=== PATIENT | female | born 1970 | race Caucasian/White ===

== ENCOUNTER 2017-01-12 08:02 | Observation (INO) ==
[2017-01-12] MEDS ORDERED: ONDANSETRON 4 MG/2 ML VIAL IV ONE ×3 (08:34→12:04)
[2017-01-12] MEDS ORDERED: LACTATED RINGERS 1,000 ML IV ONE (08:34)
[2017-01-12] MEDS ORDERED: cefTRIAXone 1 GM in DEXTROSE 5% IN WATER 50 ML IV SCH ×2 (08:45→13:17)
--- NOTE | 2017-01-12 08:46 | Emergency Department Note ---
Female Urogenital HPI - General Chief complaint: Flank Pain Stated complaint: Flank pain Time Seen by Provider: 01/12/17 08:34 Source: patient Mode of arrival: ambulatory - History of Present Illness HPI Narrative: Cintia is a 46-year-old female who presents to the emergency room with frequent urination and back pain. She reports that her symptoms began a week before last with frequent urination and for which she took [id number] phenazopyridine 97.5 mg. Her symptoms seem to improve and resolve completely but returned 5 days ago with back pain, pain with urination, sensation is still needing to go, and last p.m. onset of nausea and vomiting. This morning has vomited about 3 times. She has had some cold sweats and her temperature was measured to 101.7 last p.m. She has a history of pyelonephritis about 5-10 years ago once, a UTI/bladder infection about 2 years ago. She denies a history of kidney stones. - Related Data Home Medications Medication Instructions Recorded Confirmed LORazepam [Ativan] 0.5 mg PO PRN PRN 01/27/15 08/03/16 Methylphenidate HCl [Ritalin] 20 mg PO BID 01/27/15 08/03/16 Omeprazole [PriLOSEC] 20 mg PO BIDAC 01/27/15 08/03/16 oxyCODONE HCL/ACETAMINOPHEN 1 cap PO TID 01/27/15 08/03/16 [Oxycodon-Acetaminophen 7.5-325] Citalopram [Celexa] 20 mg PO DAILY 08/08/15 08/03/16 Fingolimod HCl [Gilenya] 0.5 mg PO DAILY 04/23/16 08/03/16 Methocarbamol [Robaxin] 500 mg PO QIDP PRN 08/03/16 08/03/16 Previous Rx's Medication Instructions Recorded HYDROcodone/APAP 5/325MG [[place] 1 tab PO Q4HP PRN #20 tablet 08/03/16 5/325Mg] Ondansetron HCl [Zofran ODT] 4 mg SL Q4-6HP PRN #15 tablet 08/03/16 Allergies Allergy/AdvReac Type Severity Reaction Status Date / Time metronidazole Allergy Verified 12/14/15 15:02 Sulfa (Sulfonamide Allergy Verified 12/14/15 15:02 Antibiotics) Review of Systems Review of Systems: No headaches or syncope or near fainting. She does get frequent or chronic paresthesias due to her MS. She denies diarrhea constipation nausea or vomiting before these couple of days, and hematochezia she denies. Normally she does not have any urinary tract symptoms of frequency or urgency or burning. She denies palpitations or irregular heartbeat or chest pain. She denies edema. Her weight has been stable. She denies cough, phlegm, wheezing, shortness of breath. Past Medical History - Past Medical History Medical history: Reports: other (MS. Right thyroid nodule. Pancreatitis once.) . Denies: coronary artery disease, diabetes, hypertension Surgical history ED: Reports: , cholecystectomy, colectomy, orthopedic , other (shoulder) - Social History smoking status: Never smoker Alcohol use: Reports: None, Occasionally (1-2 times a week.) Drug use: Reports: none Physical Exam - General General appearance: alert, other (some sitting upright with restless but very alert and interactive.) - Head Head exam: atraumatic, normocephalic - Eye Eye exam: Present: normal appearance, PERRL, EOMI - ENT ENT exam: normal oropharynx, mucous membranes moist, TM's normal bilaterally - Neck Neck exam: Present: other (right 1.5-2 cm thyroid nodule (known)). Absent: tenderness, lymphadenopathy - Respiratory Respiratory exam: Present: normal lung sounds bilaterally. Absent: respiratory distress, wheezes, stridor, accessory muscle use - Cardiovascular Cardiovascular exam: Present: regular rate, tachycardia, systolic murmur (1/6 mild early systolic at left upper sternal border ONLY with inspiration.) - Abdominal Exam Abdominal exam: Present: soft. Absent: distention, tenderness, guarding, rebound, rigidity, mass - Extremities Exam Extremities exam: Present: normal capillary refill, other (no pretibial edema). Absent: tenderness - Back Exam Back exam: Present: CVA tenderness (R) (more on right than left), CVA tenderness (L) - Neurological Exam Neurological exam: Present: alert, oriented X3 - Psychiatric Psychiatric exam: Present: normal affect, normal mood. Absent: depressed, agitated - Skin Skin exam: Present: warm, dry Course Vital Signs Temperature 97.8 F 01/12/17 08:02 Pulse Rate 108 H 01/12/17 08:02 Respiratory Rate 18 01/12/17 08:02 Blood Pressure 189/66 01/12/17 08:02 Pulse Oximetry (%) 99 01/12/17 08:02 Temperature 97.8 F 01/12/17 08:02 Pulse Rate 108 H 01/12/17 08:02 Respiratory Rate 18 01/12/17 08:02 Blood Pressure 189/66 01/12/17 08:02 Pulse Oximetry (%) 99 01/12/17 08:02 Urogenital-Female - MDM Narrative Medical decision making narrative: Patient was seen and examined and interviewed with H&P done, labs ordered, imaging ordered because of her history of previous [place] and to make sure there is no stone that would complicate her case. High likelihood of pyelonephritis with tachycardia, fever and UTI type symptoms. Rocephin was given as 1 g, pain medicine given and nausea medicine given as well as IV fluid bolus. Care will be transferred to Dr. Hernandez at 9:00 as the oncoming attending physician. Disposition Pt seen by OFFICE NURSE PRACTITIONER/PA only: No Referrals: Jonah Mcfadden MD [Primary Care Provider] -
[2017-01-12] MEDS: HYDROmorphone 2 MG/ML SYRINGE IV PRN ×4 (08:55→12:21)
[2017-01-12 09:25] LABS: Appearance,Urine HAZY; Bacteria,Urine MOD /hpf (0); Bilirubin,Urine NEG (NEG); Color,Urine AMBER; Glucose,Urine (UA) NEGATIVE (NEG); Leukocyte Esterase,Urine 25 /uL (NEG); Mucus,Urine FEW /hpf (0); Nitrate,Urine POS (NEG); Protein,Urine 100 mg/dL (NEG); Specific Gravity,Urine 1.013 (1.000-1.035); Urine Blood NEG mg/dL (<0.03); Urine RBC 4 /hpf (0-1); Urine Squamous Epithelial Cell 8 /hpf (0-4); Urine WBC > 182 /hpf (0-4)
--- NOTE | 2017-01-12 09:26 | Cat Scan Report ---
CLINICAL INFORMATION: Hematuria. Dysuria COMPARISON: CT scan dated 11/09/2013 TECHNIQUE: Axial images were obtained through the abdomen and pelvis. Sagittally and coronally reformatted images. FINDINGS: Kidneys are negative to limits of noncontrast enhanced examination. No renal calculi. No hydronephrosis. No hydroureter. No bladder calculus. No detectable solid or cystic renal mass. Urinary bladder is not distended. Bladder mass is not excluded based upon this examination. There is an anastomotic suture line in the sigmoid colon. Colon is otherwise negative. No diverticulitis. No detectable colonic mass. Lung bases are negative. There are changes consistent with fatty infiltration of liver. There is a known hemangioma in the left lobe. Liver contour is smooth. No evidence for cirrhosis. Multiple surgical clips in the gallbladder fossa. No dilated bile ducts. Negative pancreas. No pancreatic mass. No peripancreatic abnormality. Negative adrenal glands. Negative spleen. No splenomegaly. No abdominal aortic aneurysm. No retroperitoneal or mesenteric abnormality. Lumbar spine, sacrum, pelvis are negative. IMPRESSION: 1. Findings consistent with hepatic steatosis. Known hemangioma in the left lobe of the liver 2. Kidneys are negative to limits of noncontrast enhanced examination. No urolithiasis. No hydronephrosis or hydroureter Interpreted and Authenticated by: Anthony Montgomery 01/12/17
[2017-01-12 09:48] LABS: Basophils # (Auto) 0 K/mcL (0.0-0.3); Basophils % (Auto) 0.3 % (0.0-2.0); Eosinophils # (Auto) 0 K/mcL (0.0-0.7); Eosinophils % (Auto) 0.2 % (0.0-7.0); Granulocytes % (Auto) 69.3 % (38.0-78.0); Lymphocytes # (Auto) 1.9 K/mcL (1.5-4.8); Mean Cell Volume 92.3 fL (80.0-100.0); Mean Corpuscular HGB Conc 32.5 g/dL (31.0-36.0); Monocytes # (Auto) 0.7 K/mcL (0.1-0.9); Monocytes % (Auto) 8.2 % (1.0-12.0); Platelet Count 291 K/mcL (140-440); RBC 4.58 M/mcL (4.00-5.20); Red Cell Distribution Width 17.1 % (11.5-14.5)
[2017-01-12 10:12] LABS: ALT/SGPT 68 U/l (0-40); Albumin 4.4 gm/dL (3.2-5.2); Albumin/Globulin Ratio 1.3 (1.0-2.3); Alkaline Phosphatase 124 U/L (39-117); Blood Urea Nitrogen 4 mg/dl (6-20); Lipase 31 U/L (7-60)
--- NOTE | 2017-01-12 11:01 | Emergency Department Note ---
Abdominal Pain HPI - General Chief Complaint: Flank Pain Stated Complaint: Flank pain Time Seen by Provider: 01/12/17 08:34 Source: patient Mode of arrival: ambulatory Limitations: no limitations - History of Present Illness HPI Narrative: Patient is checked out to me at shift change from Dr. Mojica. I reviewed his notes as well as her studies. Additional history is noted that she is not able to hold anything down in terms of oral intake. - Related Data Home Medications Medication Instructions Recorded Confirmed LORazepam [Ativan] 0.5 mg PO PRN PRN 01/27/15 08/03/16 Methylphenidate HCl [Ritalin] 20 mg PO BID 01/27/15 08/03/16 Omeprazole [PriLOSEC] 20 mg PO BIDAC 01/27/15 08/03/16 oxyCODONE HCL/ACETAMINOPHEN 1 cap PO TID 01/27/15 08/03/16 [Oxycodon-Acetaminophen 7.5-325] Citalopram [Celexa] 20 mg PO DAILY 08/08/15 08/03/16 Fingolimod HCl [Gilenya] 0.5 mg PO DAILY 04/23/16 08/03/16 Methocarbamol [Robaxin] 500 mg PO QIDP PRN 08/03/16 08/03/16 Previous Rx's Medication Instructions Recorded HYDROcodone/APAP 5/325MG [[place] 1 tab PO Q4HP PRN #20 tablet 08/03/16 5/325Mg] Ondansetron HCl [Zofran ODT] 4 mg SL Q4-6HP PRN #15 tablet 08/03/16 Allergies Allergy/AdvReac Type Severity Reaction Status Date / Time metronidazole Allergy Verified 12/14/15 15:02 Sulfa (Sulfonamide Allergy Verified 12/14/15 15:02 Antibiotics) Abdominal Pain PMH - Past Medical History Medical history: Reports: other (MS. Right thyroid nodule. Pancreatitis once.) . Denies: coronary artery disease, diabetes, hypertension Psychiatric history: Reports: no psych history FAST FOOD SUPERVISOR history: Reports: no FAST FOOD SUPERVISOR history Family history: Reports: no significant family history - Social History Alcohol use: Reports: None, Occasionally (1-2 times a week.) Drug use: Reports: none Physical Exam - General General appearance: alert, other (some sitting upright with restless but very alert and interactive.) Course Vital Signs Temperature 97.8 F 01/12/17 08:02 Pulse Rate 108 H 01/12/17 08:02 Respiratory Rate 18 01/12/17 08:02 Blood Pressure 189/66 01/12/17 08:02 Pulse Oximetry (%) 99 01/12/17 08:02 Temperature 97.8 F 01/12/17 08:02 Pulse Rate 83 01/12/17 10:30 Respiratory Rate 18 01/12/17 08:02 Blood Pressure 135/51 01/12/17 10:31 Pulse Oximetry (%) 96 01/12/17 10:30 Abdominal Pain - Lab Data Lab results reviewed: Yes I reviewed the patient's lab results. Result diagrams: 01/12/17 08:49 01/12/17 08:49 Lab Results 01/12/17 01/12/17 01/12/17 Range/Units 08:17 08:48 08:49 WBC 8.7 (4.5-11.0) K/mcL RBC 4.58 (4.00-5.20) M/mcL Hgb 13.7 (12.0-15.0) g/dL Hct 42.3 (36.0-48.0) % MCV 92.3 (80.0-100.0) fL MCH 30.0 (26.0-34.0) pg MCHC 32.5 (31.0-36.0) g/dL RDW 17.1 H (11.5-14.5) % Plt Count 291 (140-440) K/mcL MPV 8.3 (7.4-10.4) fL Gran % 69.3 (38.0-78.0) % Lymph % (Auto) 22.0 (15.5-49.0) % [place] % (Auto) 8.2 (1.0-12.0) % Eos % (Auto) 0.2 (0.0-7.0) % Baso % (Auto) 0.3 (0.0-2.0) % Gran # 6.0 (1.8-8.0) K/mcL Lymph # (Auto) 1.9 (1.5-4.8) K/mcL [place] # (Auto) 0.7 (0.1-0.9) K/mcL Eos # (Auto) 0 (0.0-0.7) K/mcL Baso # (Auto) 0 (0.0-0.3) K/mcL VBG Lactic Acid 2.6 H (0.5-2.2) mmol/L Sodium (133-145) mmol/L Potassium (3.3-5.1) mmol/L Chloride (96-108) mmol/L Carbon Dioxide (22-30) mmol/L Anion Gap (8-16) BUN (6-20) mg/dl Creatinine (0.6-1.1) mg/dl GFR Calculation Glucose (70-105) mg/dL Calcium (8.6-10.4) mg/dl Total Bilirubin (0.0-1.0) mg/dL AST (0-37) U/l ALT (0-40) U/l Alkaline Phosphatase (39-117) U/L Total Protein (5.9-8.4) gm/dL Albumin (3.2-5.2) gm/dL Globulin (2.2-3.7) gm/dL Albumin/Globulin Ratio (1.0-2.3) Lipase (7-60) U/L Urine Color Ruba Urine Appearance Hazy Urine pH 7.0 (5.0-9.0) Ur Specific [place] 1.013 (1.000-1.035) Urine Protein 100 A (NEG) mg/dL Urine Glucose (UA) Negative (NEG) mg/dL Urine Ketones Neg (NEG) mg/dL Urine Occult Blood Neg (<0.03) mg/dL Urine Nitrate Pos A (NEG) Urine Bilirubin Neg (NEG) mg/dL Urine Urobilinogen 4.0 A (NEG) mg/dL Ur Leukocyte Esterase 25 A (NEG) /uL Urine RBC 4 H (0-1) /hpf Urine WBC > 182 H (0-4) /hpf Ur Squamous Epith Cells 8 H (0-4) /hpf Urine Bacteria Mod A (0) /hpf Urine Mucus Few (0) /hpf Ur Culture Indicated? No 01/12/17 Range/Units 08:49 WBC (4.5-11.0) K/mcL RBC (4.00-5.20) M/mcL Hgb (12.0-15.0) g/dL Hct (36.0-48.0) % MCV (80.0-100.0) fL MCH (26.0-34.0) pg MCHC (31.0-36.0) g/dL RDW (11.5-14.5) % Plt Count (140-440) K/mcL MPV (7.4-10.4) fL Gran % (38.0-78.0) % Lymph % (Auto) (15.5-49.0) % [place] % (Auto) (1.0-12.0) % Eos % (Auto) (0.0-7.0) % Baso % (Auto) (0.0-2.0) % Gran # (1.8-8.0) K/mcL Lymph # (Auto) (1.5-4.8) K/mcL [place] # (Auto) (0.1-0.9) K/mcL Eos # (Auto) (0.0-0.7) K/mcL Baso # (Auto) (0.0-0.3) K/mcL VBG Lactic Acid (0.5-2.2) mmol/L Sodium 139 (133-145) mmol/L Potassium 3.0 L (3.3-5.1) mmol/L Chloride 94 L (96-108) mmol/L Carbon Dioxide 28 (22-30) mmol/L Anion Gap 17.0 H (8-16) BUN 4 L (6-20) mg/dl Creatinine 0.8 (0.6-1.1) mg/dl GFR Calculation 87 Glucose 154 H (70-105) mg/dL Calcium 9.2 (8.6-10.4) mg/dl Total Bilirubin 1.1 H (0.0-1.0) mg/dL AST 145 H (0-37) U/l ALT 68 H (0-40) U/l Alkaline Phosphatase 124 H (39-117) U/L Total Protein 7.9 (5.9-8.4) gm/dL Albumin 4.4 (3.2-5.2) gm/dL Globulin 3.5 (2.2-3.7) gm/dL Albumin/Globulin Ratio 1.3 (1.0-2.3) Lipase 31 (7-60) U/L Urine Color Urine Appearance Urine pH (5.0-9.0) Ur Specific [place] (1.000-1.035) Urine Protein (NEG) mg/dL Urine Glucose (UA) (NEG) mg/dL Urine Ketones (NEG) mg/dL Urine Occult Blood (<0.03) mg/dL Urine Nitrate (NEG) Urine Bilirubin (NEG) mg/dL Urine Urobilinogen (NEG) mg/dL Ur Leukocyte Esterase (NEG) /uL Urine RBC (0-1) /hpf Urine WBC (0-4) /hpf Ur Squamous Epith Cells (0-4) /hpf Urine Bacteria (0) /hpf Urine Mucus (0) /hpf Ur Culture Indicated? - Radiology Data Radiology results reviewed: Yes I reviewed the patient's radiology results. CT scan of the abdomen and pelvis with contrast shows no source for her belly pain-no pyelonephritis Disposition Pt seen by CAN[employer]ODU[employer] SALES REPRESENTATIVE/PA only: No Clinical Impression: Complicated UTI (urinary tract infection), Nonalcoholic steatohepatitis ([place]) , Multiple sclerosis, Hypokalemia Intractable nausea and vomiting Qualifiers: Vomiting type: unspecified Qualified Code(s): R11.2 - Nausea with vomiting, unspecified Summary: She received IV fluids Rocephin dilaudid and nausea medicine while getting workup Labs show hypokalemia, severe UTI, elevated liver enzymes in the context of immunosuppressive MS medicine. CT scan is unrevealing Discussed situation with Dr. Loaiza our hospitalist who agreed to accept the patient for further care Disposition: Home, Self-Care Condition: Fair Referrals: Jonah Mcfadden MD [Primary Care Provider] -
[2017-01-12] MEDS ORDERED: POTASSIUM CHLORIDE 40 MEQ in DEXTROSE 5% IN WATER 500 ML IV ONE ×2 (11:02→14:47)
[2017-01-12] MEDS ORDERED: ACETAMINOPHEN 325 MG TABLET PO PRN (13:17)
[2017-01-12] MEDS ORDERED: MAGNESIUM HYDROXIDE 30 ML ORAL.SUSP PO PRN (13:17)
[2017-01-12] MEDS ORDERED: IPRATROPIUM/ALBUTEROL 3 ML AMPUL.NEB NEB PRN (13:17)
[2017-01-12] MEDS ORDERED: NALOXONE HCL 0.4 MG/ML VIAL IV PRN (13:17)
[2017-01-12] MEDS ORDERED: oxyCODONE HCL 5 MG TABLET PO PRN (13:17)
--- NOTE | 2017-01-12 13:46 | Internal Med History&Physical ---
Medical - H&P: HPI Patient information: Note initiated : 01/12/17 at 1:43 pm Service Date, if different from initiated Date: [] Patient: Cintia Lao a 46 y/o F admitted on 01/12/17 for Flank pain. Chief Complaint: [] History of present illness: Ms. Lao is a 46 year old F with history of multiple sclerosis and UTIs in the past, presents to the ER with hypogastric pain when onfor the last couple weeks, as well as increased frequency of urination and dysuria for 2 weeks. Nausea, vomiting and flank pain into 2 days. the patient notes that she has been having lower abdominal discomfort sharp pain radiating backwards to the flanks going on for the last 2 weeks, she took [id number] phenazopyridine to see if this helped. It helped for a short period of time and his symptoms returned. The patient symptoms are worse with urination. Otherwise has no other aggravating or relieving factors. The patient had a low-grade temperature yesterday was not feeling very well. The patient admits to having bilateral flank pains similar to what she had in the past when she had pyelonephritis. For the last 2 days. The patient has been having persistent nausea and vomiting and has not been able to tolerate by mouth diet very well. Given the above symptoms, she presented to the ER. In the ER, the patient was afebrile, however, was unable to tolerate by mouth. Her blood work was significant for elevated lactic acid at 2.6, potassium of 3, creatinine of 0.8, mildly elevated liver functions, baseline unknown. The patient's UA suggestive of urinary tract infection. CT scan of the abdomen and pelvis does not reveal any pyelonephritis. IV rocephin given in the ER The patient was admitted to the hospital, given that she has not been able to tolerate by mouthand has a urinary tract infection. All systems: reviewed and no additional remarkable complaints except as stated ( as per HPI) Medical - H&P: PM Medical history: Medical History (Last Updated 01/12/17 @ 11:03 by Cuco Hernandez MD) Shoulder pain (Acute) Fibrositis (Acute) Abdominal pain (Acute) Urinary tract infection (Acute) Pyelonephritis (Acute) Chronic right shoulder pain (Acute) Palpitations (Acute) Sinus tachycardia (Acute) Liver masses (Acute) Pancreatitis (Acute) Multiple sclerosis Surgical history: hysterectomy, cholecystectomy, , partial colectomy, status postoperative diverticulitis. Family history: reviewed and not pertinent Pertinent family history: mother thyroid cancer father prostate cancer. Social history: patient denies smoking, drugs, alcohol to 2 times a week, no recreational drugs reported. Medical - H&P: Meds Home Medications Medication Instructions Recorded Confirmed Type LORazepam [Ativan] 0.5 mg PO PRN PRN 01/27/15 01/12/17 History Methylphenidate HCl [Ritalin] 20 mg PO BID 01/27/15 01/12/17 History Omeprazole [PriLOSEC] 20 mg PO DAILY 01/27/15 01/12/17 History oxyCODONE HCL/ACETAMINOPHEN 7.5 mg PO QIDP 01/27/15 01/12/17 History [Oxycodon-Acetaminophen 7.5-325] Citalopram [Celexa] 20 mg PO DAILY 08/08/15 01/12/17 History Fingolimod HCl [Gilenya] 0.5 mg PO DAILY 04/23/16 01/12/17 History Cyclobenzaprine [Flexeril] 10 mg PO DAILY 01/12/17 01/12/17 History Allergies Allergy/AdvReac Type Severity Reaction Status Date / Time Sulfa (Sulfonamide Allergy Severe Difficulty Verified 01/12/17 13:20 Antibiotics) Breathing metronidazole Allergy Intermediate Hives Verified 01/12/17 13:20 Medical - H&P: Exam - Constitutional Vitals: Temp Pulse Resp BP Pulse Ox 97.8 F 82 20 165/52 95 01/12/17 13:03 01/12/17 13:03 01/12/17 13:03 01/12/17 13:03 01/12/17 13:03 Exam: GENERAL: The patient is a well-developed, well-nourished in no apparent distress. Is alert and oriented x3. VITAL SIGNS: Reviewed and as noted elsewhere. HEENT: Head is normocephalic and atraumatic. Extraocular muscles are intact. Pupils are equal, round, and reactive to light. Nares appeared normal. Mouth appears any without lesions. Mucous membranes are dry. NECK: Normal to inspection, Supple, No lymphadenopathy or thyromegaly. LUNGS: Air entry equal on both sides, no wheezing, crackles or rhonchi noted. No accessory muscles of respiration HEART: Regular rate and rhythm normal, S1 and S2 heard, no Gallop, S3 or Rub Noted, No Gross murmur heard. ABDOMEN: Soft, mild hypogastric tenderness present, and nondistended. Positive bowel sounds. No hepatosplenomegaly was noted. carmina flank tenderness present. EXTREMITIES: No cyanosis, clubbing, rash, lesions or edema. NEUROLOGIC: Cranial nerves II through XII are grossly intact. Motor and Sensory System Grossly Intact PSYCHIATRIC: Normal affect, Normal Mood. Appropriate Behavior. SKIN: No ulceration or wounds noted, No jaundice, No rash noted. Medical - H&P: Reslt - Labs CBC & Chem 7: 01/12/17 08:49 01/12/17 08:49 Medical - H&P: A/P - Narrative A/P Narrative: A/P Nausea and Vomiting Urinary tract infectino Hypokalemia Multiple sclerosis Chr pain Depression/ Anxiety Elevated Lactic acid Plan IV fluids Recheck labs Replace K Await culture results IV rocephin for now. Blood cultures ordered. Resume home meds once confirmed IV Famotid and zofran for nausae and vomiting. DVT hjep sq Regular diet Full code.
[2017-01-12] MEDS ORDERED: PROMETHAZINE 50 MG/ML AMPUL IM PRN (14:03)
[2017-01-12] MEDS: FAMOTIDINE/PF 20 MG/2 ML VIAL IV SCH ×2 (14:08→20:27)
[2017-01-12] MEDS: 0.9 % SODIUM CHLORIDE 10 ML SYRINGE IV SCH ×2 (14:14→20:33)
[2017-01-12] MEDS ORDERED: ACETAMINOPHEN PO SCH (14:15)
[2017-01-12] MEDS ORDERED: OXYCODONE HCL PO SCH (14:15)
[2017-01-12] MEDS ORDERED: [UNRECOGNIZED DRUG - OTHER] PO SCH (14:15)
[2017-01-12 14:40] LABS: ALT/SGPT 53 U/l (0-40); Albumin 3.7 gm/dL (3.2-5.2); Albumin/Globulin Ratio 1.4 (1.0-2.3); Alkaline Phosphatase 100 U/L (39-117); Bilirubin,Direct < 0.2 mg/dL (0.0-0.3); Blood Urea Nitrogen 4 mg/dl (6-20); Gamma Glutamyl Transpeptidase 376 U/L (5-36); Magnesium 1.6 mg/dL (1.6-2.5); Uric Acid 6.4 mg/dL (2.5-8.0)
[2017-01-12] MEDS: oxyCODONE HCL 5 MG TABLET PO PRN ×2 (17:31→21:43)
[2017-01-12] MEDS: 0.9 % SODIUM CHLORIDE 1,000 ML IV SCH (18:44)
[2017-01-12] MEDS: ONDANSETRON 4 MG/2 ML VIAL IV PRN (19:02)
[2017-01-12] MEDS: LORazepam 0.5 MG TABLET PO PRN (20:27)
[2017-01-12] MEDS: HEPARIN 5,000 UNIT/ML VIAL SQ SCH (20:30)
[2017-01-12] MEDS: Methylphenidate Hcl [Ritalin] 20 mg Tab PO SCH (20:33)
[2017-01-13] MEDS: oxyCODONE HCL 5 MG TABLET PO PRN ×6 (02:06→22:00)
[2017-01-13] MEDS: 0.9 % SODIUM CHLORIDE 1,000 ML IV SCH ×3 (02:08→10:53)
[2017-01-13] MEDS: 0.9 % SODIUM CHLORIDE 10 ML SYRINGE IV SCH ×3 (05:53→21:30)
[2017-01-13] MEDS: ONDANSETRON 4 MG/2 ML VIAL IV PRN (07:22)
[2017-01-13] MEDS: Methylphenidate Hcl [Ritalin] 20 mg Tab PO SCH ×2 (07:25→21:30)
[2017-01-13] MEDS: FAMOTIDINE/PF 20 MG/2 ML VIAL IV SCH ×2 (07:45→21:28)
[2017-01-13] MEDS: CITALOPRAM 20 MG TABLET PO SCH (07:46)
[2017-01-13] MEDS: CYCLOBENZAPRINE 10 MG TABLET PO SCH (07:46)
[2017-01-13] MEDS: OMEPRAZOLE 20 MG CAPSULE PO SCH (07:46)
[2017-01-13] MEDS: HEPARIN 5,000 UNIT/ML VIAL SQ SCH ×2 (07:46→21:30)
[2017-01-13] MEDS: cefTRIAXone 1 GM in DEXTROSE 5% IN WATER 50 ML IV SCH (08:53)
[2017-01-13 10:37] LABS: Basophils # (Auto) 0 K/mcL (0.0-0.3); Basophils % (Auto) 0.1 % (0.0-2.0); Eosinophils # (Auto) 0 K/mcL (0.0-0.7); Eosinophils % (Auto) 0.9 % (0.0-7.0); Granulocytes % (Auto) 49.2 % (38.0-78.0); Lymphocytes % (Auto) 39.7 % (15.5-49.0); Mean Cell Volume 92.8 fL (80.0-100.0); Mean Corpuscular HGB Conc 32.6 g/dL (31.0-36.0); Mean Corpuscular Hemoglobin 30.3 pg (26.0-34.0); Monocytes # (Auto) 0.5 K/mcL (0.1-0.9); Monocytes % (Auto) 10.1 % (1.0-12.0); Platelet Count 196 K/mcL (140-440); RBC 3.54 M/mcL (4.00-5.20); Red Cell Distribution Width 16.9 % (11.5-14.5)
[2017-01-13 10:56] LABS: ALT/SGPT 39 U/l (0-40); Albumin 3.3 gm/dL (3.2-5.2); Albumin/Globulin Ratio 1.3 (1.0-2.3); Alkaline Phosphatase 83 U/L (39-117); Bilirubin,Direct < 0.2 mg/dL (0.0-0.3); Blood Urea Nitrogen 2 mg/dl (6-20); Gamma Glutamyl Transpeptidase 298 U/L (5-36); Magnesium 1.5 mg/dL (1.6-2.5); Uric Acid 5.3 mg/dL (2.5-8.0)
[2017-01-13] MEDS ORDERED: MAGNESIUM SULFATE 2 GM/50 ML BAG IV ONE (11:05)
[2017-01-13] MEDS: FINGOLIMOD HCL 0.5 MG PO SCH (12:12)
[2017-01-13] MEDS: METOCLOPRAMIDE 10 MG/2 ML VIAL IV SCH ×2 (12:52→17:53)
--- NOTE | 2017-01-13 15:02 | Internal Med Progress Note ---
Medical - PN: Subj Patient information: Note initiated : 01/13/17 at 3:00 pm Service Date, if different from initiated Date: [] Patient: Cintia Lao a 46 y/o F admitted on 01/12/17 for Flank Pain/UTI, Nausea and Vomiting. Chief Complaint: [] Interval history: Ms. Lao is a 46 year old F with history of multiple sclerosis and UTIs in the past, presents to the ER with hypogastric pain when onfor the last couple weeks, as well as increased frequency of urination and dysuria for 2 weeks. Nausea, vomiting and flank pain into 2 days. the patient notes that she has been having lower abdominal discomfort sharp pain radiating backwards to the flanks going on for the last 2 weeks, she took [id number] phenazopyridine to see if this helped. It helped for a short period of time and his symptoms returned. The patient symptoms are worse with urination. Otherwise has no other aggravating or relieving factors. The patient had a low-grade temperature yesterday was not feeling very well. The patient admits to having bilateral flank pains similar to what she had in the past when she had pyelonephritis. For the last 2 days. The patient has been having persistent nausea and vomiting and has not been able to tolerate by mouth diet very well. Given the above symptoms, she presented to the ER. In the ER, the patient was afebrile, however, was unable to tolerate by mouth. Her blood work was significant for elevated lactic acid at 2.6, potassium of 3, creatinine of 0.8, mildly elevated liver functions, baseline unknown. The patient's UA suggestive of urinary tract infection. CT scan of the abdomen and pelvis does not reveal any pyelonephritis. IV rocephin given in the ER The patient was admitted to the hospital, given that she has not been able to tolerate by mouthand has a urinary tract infection. 01/13: patient seen, examined, yesterday, had no nausea, vomiting. However, after eating breakfast. She vomited 1. She still has some pain in the lower abdomen as well as the left flank and does not feel back to normal. the patient denies any other new complaints. Cultures pending. Pertinent ROS: Denies headache, dizziness Denies chest pain, palpitations Denies cough or shortness of breath Present hypogastric abdominal pain, nausea and vomiting. - Constitutional Vitals: Vital Signs Temp Pulse Resp BP Pulse Ox 98.2 F 85 16 142/56 97 01/13/17 11:31 01/13/17 04:00 01/13/17 11:31 01/13/17 11:31 01/13/17 11:31 Period Temp Pulse Resp BP Sys/[place] Pulse Ox Last 24 Hr 96.6 F-99.7 F 69-90 16-22 132-165/54-68 94-97 Intake and Output 01/13/17 01/13/17 01/13/17 05:59 13:59 21:59 Intake Total 1325 / 1325 1000 / 1000 240 / 240 Output Total 1125 / 1125 1100 / 1100 Balance 200 / 200 1000 / 1000 -860 / -860 Intake & Output: Intake & Output 01/13/17 01/13/17 01/13/17 05:59 13:59 21:59 Intake Total 1325 / 1325 1000 / 1000 240 / 240 Output Total 1125 / 1125 1100 / 1100 Balance 200 / 200 1000 / 1000 -860 / -860 Intake: IV 925 / 925 1000 / 1000 Sodium Chloride 0.9% 1, 925 / 925 1000 / 1000 000 ml @ 125 mls/hr IV . Q8H [facility] Rx#:[id number] Oral 400 / 400 240 / 240 Output: Void Amount 1125 / 1125 1100 / 1100 Other: Meal Lunch Percent of Meal Consumed 50% Feeding Ability Independent # Voids 5 # Emeses 0 Exam: Constitutional; Afebrile, cooperative, alert, not in distress. Eyes- No icterus, , No periorbital swelling Ears- Ext ear normal, hearing normal to conversation. Neck- Midline trachea, supple Respiratory system: Air Entry equal on both sides, No crackles or wheezing, no rhonchi. CVS- Rate rhythm regular, S1,S2 heard, no gallop, no rub. Abdomen- Soft mildly tender hypogastric abdomen, no organomegaly, no tenderness , no guarding or rigidity, left cva tenderness present today. GREASE MONKEY- AOOx3, moving all extremities, no gross focal deficit noted. Medical - PN: Obj Da - Labs CBC & Chem 7: 01/13/17 09:57 01/13/17 09:57 Labs: Abnormal Lab Results 01/13/17 01/13/17 01/12/17 09:57 09:57 13:40 RBC 3.54 L Hgb 10.7 L Hct 32.9 L RDW 16.9 H BUN 2 L 4 L Glucose 124 H 108 H Calcium 8.0 L 8.4 L Phosphorus 2.3 L 2.6 L Magnesium 1.5 L GGT 298 H 376 H AST 62 H 102 H ALT 53 H Triglycerides 169 H 173 H Meds: Medications Acetaminophen (Tylenol) 650 mg PO Q6HP PRN PRN Reason: PAIN/FEVER > 101 Albuterol/Ipratropium (Duoneb) 3 ml NEB Q6HRT PRN PRN Reason: Shortness Of Breath Or Wheezing Citalopram Hydrobromide (Celexa) 20 mg PO DAILY [facility] Last Admin: 01/13/17 07:46 Dose: 20 mg Cyclobenzaprine HCl (Flexeril) 10 mg PO DAILY [facility] Last Admin: 01/13/17 07:46 Dose: 10 mg Famotidine (Pepcid) 20 mg IV Q12 [facility] Last Admin: 01/13/17 07:45 Dose: 20 mg Heparin Sodium (Porcine) (Heparin) 5,000 unit SQ Q12 [facility] Last Admin: 01/13/17 07:46 Dose: Not Given Ceftriaxone Sodium 1 gm/ (Dextrose) 50 mls @ 100 mls/hr IV Q24H [facility] Last Admin: 01/13/17 08:53 Dose: 100 mls/hr Lorazepam (Ativan) 0.5 mg PO DAILYP PRN PRN Reason: Anxiety Last Admin: 01/12/17 20:27 Dose: 0.5 mg Magnesium Hydroxide (Milk Of Magnesia) 30 ml PO DAILYP PRN PRN Reason: Constipation Metoclopramide HCl (Reglan) 5 mg IV Q6 [facility] Last Admin: 01/13/17 12:52 Dose: 5 mg Naloxone HCl (Narcan) 0.1 mg IV Q2MIN PRN PRN Reason: Opiate Reversal Omeprazole (Prilosec) 20 mg PO DAILY [facility] Last Admin: 01/13/17 07:46 Dose: 20 mg Ondansetron HCl (Zofran) 4 mg IV Q6HP PRN PRN Reason: Nausea And Vomiting Last Admin: 01/13/17 07:22 Dose: 4 mg Oxycodone HCl (Roxicodone) 10 mg PO Q4HP PRN PRN Reason: Pain Last Admin: 01/13/17 14:33 Dose: 10 mg Fingolimod Hcl [ (Gilenya] 0.5 Mg Tab) 1 dose PO DAILY [facility] Last Admin: 01/13/17 12:12 Dose: 1 dose Methylphenidate Hcl ([Ritalin] 20 Mg Tab) 1 dose PO BID [facility] Last Admin: 01/13/17 07:25 Dose: Not Given Sodium Chloride (Saline Flush) 10 ml IV Q8 [facility] Last Admin: 01/13/17 12:54 Dose: Not Given Medical - PN: A/P - Time Spent With Patient Total time spent is greater than 50% in coordination of care (as documented) at patient's floor/unit and/or counseling patient: - Narrative A/P Narrative: A/P Intractable Nausea and Vomiting Urinary tract infection Hypokalemia Multiple sclerosis Chr pain Depression/ Anxiety Elevated Lactic acid Hypomagnesemia Plan Continue IV fluids IV mag suplhate replacement. Hypokalemia resolved, Await culture results IV rocephin for now. continue Blood cultures pending. IV Famotid and zofran for nausae and vomiting. add reglan q6hs DVT hep sq Regular diet Full code If continues to improve, and is able to tolerate po will d/c home tomorrow.
[2017-01-13] MEDS: LORazepam 0.5 MG TABLET PO PRN (22:00)
[2017-01-14] MEDS: METOCLOPRAMIDE 10 MG/2 ML VIAL IV SCH ×3 (00:09→12:06)
[2017-01-14] MEDS: oxyCODONE HCL 5 MG TABLET PO PRN ×3 (02:34→10:53)
[2017-01-14 06:11] LABS: Basophils # (Auto) 0 K/mcL (0.0-0.3); Basophils % (Auto) 0.4 % (0.0-2.0); Eosinophils # (Auto) 0.1 K/mcL (0.0-0.7); Eosinophils % (Auto) 1.8 % (0.0-7.0); Granulocytes % (Auto) 42.3 % (38.0-78.0); Lymphocytes # (Auto) 2.4 K/mcL (1.5-4.8); Lymphocytes % (Auto) 46.4 % (15.5-49.0); Mean Cell Volume 92.5 fL (80.0-100.0); Mean Corpuscular HGB Conc 32.9 g/dL (31.0-36.0); Mean Corpuscular Hemoglobin 30.4 pg (26.0-34.0); Monocytes # (Auto) 0.5 K/mcL (0.1-0.9); Monocytes % (Auto) 9.1 % (1.0-12.0); Platelet Count 207 K/mcL (140-440); RBC 3.32 M/mcL (4.00-5.20); Red Cell Distribution Width 17.1 % (11.5-14.5)
[2017-01-14 07:28] LABS: ALT/SGPT 35 U/l (0-40); Albumin 3.3 gm/dL (3.2-5.2); Albumin/Globulin Ratio 1.2 (1.0-2.3); Alkaline Phosphatase 76 U/L (39-117); Bilirubin,Direct < 0.2 mg/dL (0.0-0.3); Blood Urea Nitrogen 2 mg/dl (6-20); Gamma Glutamyl Transpeptidase 275 U/L (5-36); Magnesium 2.3 mg/dL (1.6-2.5); Uric Acid 5.2 mg/dL (2.5-8.0)
[2017-01-14] MEDS: OMEPRAZOLE 20 MG CAPSULE PO SCH (08:37)
[2017-01-14] MEDS: HEPARIN 5,000 UNIT/ML VIAL SQ SCH (08:38)
[2017-01-14] MEDS: CYCLOBENZAPRINE 10 MG TABLET PO SCH (08:38)
[2017-01-14] MEDS: CITALOPRAM 20 MG TABLET PO SCH (08:38)
[2017-01-14] MEDS: FAMOTIDINE/PF 20 MG/2 ML VIAL IV SCH (08:39)
[2017-01-14] MEDS: 0.9 % SODIUM CHLORIDE 10 ML SYRINGE IV SCH (08:45)
[2017-01-14] MEDS: FINGOLIMOD HCL 0.5 MG PO SCH (08:45)
[2017-01-14] MEDS: Methylphenidate Hcl [Ritalin] 20 mg Tab PO SCH (08:46)
[2017-01-14] MEDS: cefTRIAXone 1 GM in DEXTROSE 5% IN WATER 50 ML IV SCH (09:28)
[2017-01-14 10:55] LABS: Appearance,Urine CLEAR; Bacteria,Urine 0 /hpf (0); Bilirubin,Urine NEG (NEG); Color,Urine YELLOW; Glucose,Urine (UA) NEGATIVE (NEG); Leukocyte Esterase,Urine 75 /uL (NEG); Mucus,Urine FEW /hpf (0); Nitrate,Urine NEG (NEG); Protein,Urine NEG (NEG); Specific Gravity,Urine 1.005 (1.000-1.035); Urine Blood NEG mg/dL (<0.03); Urine RBC < 1 /hpf (0-1); Urine Squamous Epithelial Cell 3 /hpf (0-4); Urine WBC 2 /hpf (0-4); Urobilinogen,Urine NEG (NEG)
--- NOTE | 2017-01-14 12:51 | Discharge Summary ---
Medical - DS: Prov Patient information: Note initiated : 01/14/17 at 12:48 pm Service Date, if different from initiated Date: [] Patient: Cintia Lao 46 y/o F admitted on 01/12/17 for Flank Pain/UTI, Nausea and Vomiting. Chief Complaint: [] Date of admission: 01/12/17 13:00 Discharge date: 01/14/17 Primary care physician: Jonah Mcfadden Admitting clinician: Elizabeth Loaiza Discharging clinician: Elizabeth Loaiza Medical - DS: Meds - Discharge Medications Prescriptions: Cefdinir 300 mg PO BID #20 capsule Metoclopramide [Reglan] 5 mg PO ACHS PRN #20 tablet PRN Reason: Nausea and or vomiting. Active and Home Medications: Home Medications LORazepam [Ativan] 0.5 mg PO PRN PRN 01/27/15 [History Confirmed 01/12/17 Last Taken 01/11/17 17:00] Methylphenidate HCl [Ritalin] 20 mg PO BID 01/27/15 [History Confirmed 01/12/17 Last Taken 01/11/17 13:00] Omeprazole [PriLOSEC] 20 mg PO DAILY 01/27/15 [History Confirmed 01/12/17 Last Taken 01/11/17] oxyCODONE HCL/ACETAMINOPHEN [Oxycodon-Acetaminophen 7.5-325] 7.5 mg PO QIDP [History Confirmed 01/12/17 Last Taken 01/11/17 09:00] Citalopram [Celexa] 20 mg PO DAILY 08/08/15 [History Confirmed 01/12/17 Last Taken 01/12/17] Fingolimod HCl [Gilenya] 0.5 mg PO DAILY 04/23/16 [History Confirmed 01/12/17 Last Taken 01/12/17] Cyclobenzaprine [Flexeril] 10 mg PO DAILY 01/12/17 [History Confirmed 01/12/17 Last Taken 01/11/17 17:00] Medical - DS: Hosp Hospital course: Ms. Lao is a 46 year old F with history of multiple sclerosis and UTIs in the past, presents to the ER with hypogastric pain when on for the last couple weeks, as well as increased frequency of urination and dysuria for 2 weeks. Nausea, vomiting and flank pain for 2 days. the patient notes that she has been having lower abdominal discomfort sharp pain radiating backwards to the flanks going on for the last 2 weeks, she took [id number] phenazopyridine to see if this helped. It helped for a short period of time and his symptoms returned. The patient symptoms are worse with urination. Otherwise has no other aggravating or relieving factors. The patient had a low-grade temperature a day before admission and was not feeling very well. The patient admits to having bilateral flank pains similar to what she had in the past when she had pyelonephritis. The patient has been having persistent nausea and vomiting and has not been able to tolerate by mouth diet very well. Given the above symptoms, she presented to the ER. In the ER, the patient was afebrile, however, was unable to tolerate by mouth. Her blood work was significant for elevated lactic acid at 2.6, potassium of 3, creatinine of 0.8, mildly elevated liver functions, baseline unknown. The patient's UA suggestive of urinary tract infection. CT scan of the abdomen and pelvis does not reveal any pyelonephritis. IV rocephin given in the ER, The patient was admitted to the hospital, given that she has not been able to tolerate by mouth and has a urinary tract infection. The patients ua was positive for uti, urine cx was not done by the lab as per reflex policy. The patient had blood cultures drawn which were negative. Patient responded very well to IV Rocephin. Repeat UA done today shows significant improvement. Cultures sent. The patient had significant nausea and vomiting for which she was given Zofran. She did not respond very well to same. However, she responded well to Reglan. She will be discharged home on cefdinir 300mg bid 10 more days (given that she has flank pain a longer course is selected to cover for possible subtle pyelonephritis which was not seen on CT ) , and Reglan 5 mg before meals at bedtime when necessary. Discharge diagnosis: UTI, nausea and vomiting. - Time Spent with Patient Total time spent providing and/or coordinating discharge services: Less than 30 minutes Medical - DS: Exam - Constitutional Vitals: Vital Signs Temp Pulse Resp BP Pulse Ox 01/14/17 11:14 96.9 F L 16 105/67 98 01/14/17 07:44 96.8 F L 16 102/64 98 01/14/17 07:22 96 01/14/17 04:45 100.3 F H 67 16 109/38 01/13/17 23:48 98.6 F 88 16 131/65 01/13/17 20:00 98.7 F 92 H 12 114/56 97 01/13/17 15:14 98 F 16 159/53 96 Intake and Output 01/13/17 01/14/17 01/14/17 21:59 05:59 13:59 Intake Total 2490 / 2490 600 / 600 530 / 530 Output Total 2600 / 2600 600 / 600 700 / 700 Balance -110 / -110 0 / 0 -170 / -170 Intake: IV 1050 / 1050 50 / 50 Rocephin 1 gm In Dextrose 50 / 50 50 / 50 5% in Water 50 ml @ 100 mls/hr IV Q24H [facility] Rx#: [id number] Oral 1440 / 1440 600 / 600 480 / 480 Output: Urine Catheter Amount 700 / 700 Void Amount 2600 / 2600 600 / 600 Other: Meal Dinner Breakfast Percent of Meal Consumed 75% 100% Feeding Ability Independent # Voids 2 Weight 166 lb 1.6 oz Additional comments: Constitutional; Afebrile, cooperative, alert, not in distress. Eyes- No icterus, , No periorbital swelling Ears- Ext ear normal, hearing normal to conversation. Neck- Midline trachea, supple Respiratory system: Air Entry equal on both sides, No crackles or wheezing, no rhonchi. CVS- Rate rhythm regular, S1,S2 heard, no gallop, no rub. Abdomen- Soft nontender abdomen, no organomegaly, no tenderness, no guarding or rigidity, [employer]- AOOx3, moving all extremities, no gross focal deficit noted. Medical - DS: Data Procedures and tests throughout hospitalization: CT abdomen IMPRESSION: 1. Findings consistent with hepatic steatosis. Known hemangioma in the left lobe of the liver 2. Kidneys are negative to limits of noncontrast enhanced examination. No urolithiasis. No hydronephrosis or hydroureter Labs on day of discharge: Labs from last 24 hours 01/14/17 01/14/17 01/14/17 08:17 04:18 04:18 WBC 5.3 RBC 3.32 L Hgb 10.1 L Hct 30.7 L MCV 92.5 MCH 30.4 MCHC 32.9 RDW 17.1 H Plt Count 207 MPV 7.8 Gran % 42.3 Lymph % (Auto) 46.4 Lea % (Auto) 9.1 Eos % (Auto) 1.8 Baso % (Auto) 0.4 Gran # 2.2 Lymph # (Auto) 2.4 Lea # (Auto) 0.5 Eos # (Auto) 0.1 Baso # (Auto) 0 Sodium 145 Potassium 3.9 Chloride 105 Carbon Dioxide 30 Anion Gap 10.0 BUN 2 L Creatinine 0.7 GFR Calculation 102 Glucose 95 Uric Acid 5.2 Calcium 8.2 L Phosphorus 3.4 Magnesium 2.3 Total Bilirubin 0.3 Direct Bilirubin < 0.2 GGT 275 H AST 60 H ALT 35 Alkaline Phosphatase 76 Lactate Dehydrogenase 235 Total Protein 6.0 Albumin 3.3 Globulin 2.7 Albumin/Globulin Ratio 1.2 Triglycerides 116 Urine Color Yellow Urine Appearance Clear Urine pH 8.0 Ur Specific [place] 1.005 Urine Protein Neg Urine Glucose (UA) Negative Urine Ketones Neg Urine Occult Blood Neg Urine Nitrate Neg Urine Bilirubin Neg Urine Urobilinogen Neg Ur Leukocyte Esterase 75 A Urine RBC < 1 Urine WBC 2 Ur Squamous Epith Cells 3 Urine Bacteria 0 Urine Mucus Few Ur Culture Indicated? No Preliminary micro results at discharge 01/12/17 13:40 Blood Culture - Preliminary Blood 01/12/17 13:50 Blood Culture - Preliminary Blood Medical - DS: A/P - Patient/Caregiver Discharge Instructions Activity: increase activity as tolerated Diet: Regular Diet Additional Instructions: take antibiotics as prescribed Follow-up with primary care physician in's 1-2 weeks Good to the ER if fever, chills, recurrent nausea, vomiting or any other concerning symptoms. No changes in your routine home medications has been done. Take her medications as prescribed by her regular doctor. - Follow up Plan Follow up with: Jonah Mcfadden MD [Primary Care Provider] - Disposition: Home, Self-Care Prognosis: Fair Rehab Potential: Fair I certify that the patient requires SNF services: No Overall status at discharge: patient is progressing back to baseline
== END 2017-01-14 13:45 | disposition home or self-care (01) ==
LOC: ED 08:02 → MEDSUR 08:02
PROVIDERS: ADMIT Internal Medicine; ATTEND Internal Medicine